=== PATIENT | female | born 1955 | race African-American/Black ===

== ENCOUNTER 2020-01-25 20:53 | Emergency (ER) | payer OTHER, MEDICAID ==
[~2020-01-25] VITALS: Ht 170.2 cm; Wt 83.9 kg
[2020-01-25 21:12] VITALS: BP_SYST 118
--- NOTE | 2020-01-25 21:14 | NUR ---
Patient triaged and placed in waiting room. VSS and patient appears in no acute distress at this time. Accompanied by daughters, awaiting available bed, and MD notified of need for MSE.
--- NOTE | 2020-01-25 23:33 | NUR ---
Pt ambulatory to chair for evaluation
--- NOTE | 2020-01-25 23:38 | NUR ---
Pt AAOx4 ambulated into ED c/o fever, congestion, cough, boday aches x 1 day. Skin pink dry and warm, breathing even and unlabored. No other injuries/complaints per pt/noted. Will continue to monitor.
--- NOTE | 2020-01-25 23:40 | NUR ---
ER Dr. Venegas at bedside examining patient.
--- NOTE | 2020-01-25 23:40 | NUR ---
Note undone in EDM - 01/26/20 at 0358 by [email or web address] Patient given written and verbal discharge instructions and verbalizes understanding. ER MD Venegas discussed with patient the results and treatment provided. Patient in stable condition. ID arm band removed. Rx of Tamiflu given. Patient educated on pain management and to follow up with PMD. Pain Scale 0. Opportunity for questions provided and answered. Medication side effect fact sheet provided.
[2020-01-25] MEDS ORDERED: OSELTAMIVIR PHOSPHATE 75 MG CAPSULE PO ONE (23:45)
[2020-01-26] VITALS: BP_SYST 123
--- NOTE | 2020-01-26 | NUR ---
Marlen lipscomb in [facility] - 01/26/20 at 0359 by [email or web address] GEORGE Guerra at bedside examining patient.
--- NOTE | 2020-01-26 | NUR ---
Patient given written and verbal discharge instructions and verbalizes understanding. ER MD Venegas discussed with patient the results and treatment provided. Patient in stable condition. ID arm band removed. Rx of Tamiflu given. Patient educated on pain management and to follow up with PMD. Pain Scale 0. Opportunity for questions provided and answered. Medication side effect fact sheet provided.
== END 2020-01-26 | disposition home or self-care (01) ==
LOC: SED 20:53
DX: J11.1 Influenza due to unidentified influenza virus with other respiratory manifestations (principal); I10 Essential (primary) hypertension; Z88.5 Allergy status to narcotic agent; Z91.040 Latex allergy status
CPT/HCPCS: 86710; 99283; G9035; 36415

== ENCOUNTER 2022-09-17 19:42 | Emergency (ER) | payer OTHER, MEDICAID ==
[~2022-09-17] VITALS: Ht 170.2 cm; Wt 98.9 kg
--- NOTE | 2022-09-17 19:45 | NUR ---
Marlen lipscomb in [facility] - 09/18/[email or web address] Castro at [facility].
[2022-09-17 19:54] VITALS: BP_SYST 140
--- NOTE | 2022-09-17 19:58 | NUR ---
PT HERE C/O CP X2 DAYS STARTED 1600 YESTERDAY. DENIES N/V. PAIN IS SUDDEN ONSET AND NON PROVOKE. PMH:HTN,THYROID PT AAOX4, SEEN AND EXAMINE BY DR. MERCEDES.
--- NOTE | 2022-09-17 20:03 | NUR ---
Placed in room 06 . Placed on manager cardiac, blood pressure machine and pulse oximeter. To gown for exam. Side rails up.
--- NOTE | 2022-09-17 20:05 | NUR ---
Pt's daughter, Porter, calls to provide contact number ([phone]).
--- NOTE | 2022-09-17 20:10 | NUR ---
Dr. Castro at bedside.
[2022-09-17 20:38] LABS: ANION GAP 5 (5-15); CALCIUM 10.8 mg/dL (8.4-11.0); CHLORIDE 107 mmol/L (98-107); CREATININE 0.66 mg/dL (0.55-1.30); GLUCOSE 104 mg/dL (70-99); UREA NITROGEN, BLOOD 18 mg/dL (8-21)
[2022-09-17 20:44] LABS: ALANINE AMINOTRANSFERASE 17 U/L (12-78); ALBUMIN 3.8 g/dL (3.4-4.8); ASPARTATE AMINOTRANSFERASE 19 U/L (10-37); TOTAL BILIRUBIN 0.3 mg/dL (0.0-1.0)
--- NOTE | 2022-09-17 20:44 | NUR ---
Lab calls to report blood drawn for CBC is clotted. Lab states that initial order will be cancelled. MD notified and new order for CBC entered.
[2022-09-17 20:45] LABS: GFR AFRICAN AMERICAN 114 mL/min (>90); POTASSIUM 5.3 mmol/L (3.5-5.1)
--- NOTE | 2022-09-17 20:50 | NUR ---
requests that repeat CBC be drawn at time of repeat troponin lab. Lab notified.
[2022-09-17] MEDS ORDERED: IBUPROFEN 800 MG TABLET PO ONE (21:30)
[2022-09-17 22:08] LABS: BASOPHILS # (AUTO) 0.1 K/uL (0.0-0.2); BASOPHILS % (AUTO) 1.2 % (0.0-2.0); EOSINOPHILS # (AUTO) 0.1 K/uL (0.0-0.4); EOSINOPHILS % (AUTO) 2.4 % (0.0-4.0); HEMATOCRIT 39.7 % (36-48); HEMOGLOBIN 13.4 g/dL (12.0-16.0); LYMPHOCYTES # (AUTO) 1.9 K/uL (1.0-5.5); MEAN CORPUSCULAR HEMOGLOBIN 30 pg (27-31); MEAN CORPUSCULAR HGB CONC 34 % (32-36); MEAN CORPUSCULAR VOLUME 90 fL (79.0-98.0); MONOCYTES # (AUTO) 0.5 K/uL (0.0-1.0); MONOCYTES % (AUTO) 10.1 % (1.7-9.3); NEUTROPHILS # (AUTO) 2.5 K/uL (1.8-7.7); NEUTROPHILS % (AUTO) 48.3 % (40.0-70.0); PLATELET COUNT (AUTO) 376 K/uL (130-430); RED BLOOD CELL COUNT(AUTO) 4.41 MIL/uL (4.2-6.2); RED CELL DISTRIBUTION WIDTH 15.5 % (9.0-15.0); WHITE BLOOD COUNT (AUTO) 5.1 K/uL (4.8-10.8)
--- NOTE | 2022-09-17 23:10 | NUR ---
REPORT GIVEN TO RODRIGUEZ CONRAD, PT IN STABLE CONDITION
--- NOTE | 2022-09-17 23:10 | NUR ---
Pt report received. Pt AAOx4, denies c/o pain or discomfort and no needs verbalized at this time.
[2022-09-18 00:11] LABS: CALCIUM 10.6 mg/dL (8.4-11.0); CREATININE 0.75 mg/dL (0.55-1.30); POTASSIUM 4.3 mmol/L (3.5-5.1)
[2022-09-18] MEDS ORDERED: IBUP-1971 PO (01:13)
[2022-09-18 01:40] VITALS: BP_SYST 134
[2022-09-18] MEDS ORDERED: MOXI3DRO OP (01:53)
--- NOTE | 2022-09-18 02:01 | NUR ---
Patient given written and verbal discharge instructions and verbalizes understanding. ER MD discussed with patient the results and treatment provided. Patient in stable condition. ID arm band removed. Rx of Motrin and Zagamox given. Patient educated on pain management and to follow up with PMD. Pain Scale 2/10. Opportunity for questions provided and answered. Medication side effect fact sheet provided.
== END 2022-09-18 02:01 | disposition home or self-care (01) ==
LOC: SED 19:42
DX: H10.32 Unspecified acute conjunctivitis, left eye (principal); R07.2 Precordial pain; Z91.040 Latex allergy status; Z88.6 Allergy status to analgesic agent; Z79.899 Other long term (current) drug therapy
CPT/HCPCS: 36415; 71045; 80048; 80053; 84484; 85025; 85379; 93005; 93971; 99285